=== PATIENT | female | born 1985 | race Caucasian/White ===

== ENCOUNTER 2019-12-29 16:01 | Observation (INO) ==
[2019-12-29] MEDS ORDERED: Naloxone 0.4 MG/ML INJ IVP PRN (16:58)
[2019-12-29] MEDS ORDERED: Ringers Solution, Lactated 1,000 ML IVC SCH (17:00)
[2019-12-29] MEDS ORDERED: *HR* HYDROcodone/Acet 5/325 mg TABLET PO PRN (17:48)
[2019-12-29] MEDS ORDERED: SUMAtriptan succinate 50 MG TABLET PO PRN (17:48)
[2019-12-29 17:54] LABS: Basophils % 0.4 %; Eosinophils # 0.1 K/mcL (0.0-0.6); Eosinophils % 1.5 %; Hemoglobin 10.9 g/dL (11.5-15.4); Immature Granulocytes % 0.2 % (0-4); Lymphocytes # 1.1 K/mcL (0.6-4.6); Lymphocytes % 20.5 %; Mean Corpuscular HGB Conc 31.1 g/dL (31.6-35.5); Mean Corpuscular Hemoglobin 27.2 pg (28.0-33.3); Mean Corpuscular Volume 87.3 fL (83.0-100.0); Mean Platelet Volume 9.8 fL (9.4-12.4); Monocytes # 0.4 K/mcL (0.0-1.3); Monocytes % 6.5 %; Neutrophils # 3.8 K/mcL (1.6-8.9); Platelet Count 257 K/mcL (140-400); Red Blood Count 4.01 M/mcL (3.82-4.97); Red Cell Distribution Width 13.1 % (11.5-14.5); Segmented Neutrophils % 70.9 %; White Blood Count 5.4 K/mcL (4.3-11.1)
[2019-12-29] MEDS: Pantoprazole 40 MG VIAL IVP SCH (17:56)
[2019-12-29] MEDS: Ondansetron 4 MG/2 ML VIAL IVP PRN (17:56)
[2019-12-29] MEDS: MetroNIDAZOLE 500 MG/100 ML 500 MG/100 ML BAG IVPB SCH ×2 (17:57→22:53)
[2019-12-29 18:09] LABS: Alanine Aminotransferase 12 Units/L (7-52); Albumin 3.9 g/dL (3.5-5.7); Albumin/Globulin Ratio 1.5 (1.1-2.2); Alkaline Phosphatase 40 Units/L (34-104); Aspartate Amino Transferase 17 Units/L (13-39); BUN/Creatinine Ratio 16 (6-26); Bilirubin,Total 0.3 mg/dL (0.3-1.0); Blood Urea Nitrogen 12 mg/dL (6-20); Carbon Dioxide 25 mEq/L (23-29); Chloride 108 mEq/L (98-107); Globulin 2.6 g/dL (2.4-3.5); Glucose 91 mg/dL (70-105); Lipase 47 Units/L (11-82); Magnesium 1.8 mg/dL (1.6-2.6); Osmolality,Calculated 289 (280-300); Potassium 3.4 mEq/L (3.5-5.1); Sodium 140 mEq/L (136-145); Total Protein 6.5 g/dL (6.4-8.9); eGFR For African Americans > 60 (> 60); eGFR For Non-African Americans > 60 (> 60)
[2019-12-29] MEDS: 0.9 % Sodium Chloride w KCl 20 MEQ/1,000 ML MLS IVC SCH (18:34)
[2019-12-29] MEDS ORDERED: Melatonin 3 MG TABLET PO ONE (22:34)
[2019-12-30] MEDS: Pantoprazole 40 MG VIAL IVP SCH (07:16)
[2019-12-30] MEDS: MetroNIDAZOLE 500 MG/100 ML 500 MG/100 ML BAG IVPB SCH ×3 (07:16→23:14)
[2019-12-30] MEDS: 0.9 % Sodium Chloride w KCl 20 MEQ/1,000 ML MLS IVC SCH ×2 (07:16→23:13)
[2019-12-30] MEDS: Acetaminophen 325 MG TABLET PO PRN ×2 (07:22→13:52)
[2019-12-30 10:32] LABS: Hematocrit 33.1 % (35.3-44.9); Hemoglobin 10.6 g/dL (11.5-15.4); Mean Corpuscular Hemoglobin 28.1 pg (28.0-33.3); Mean Corpuscular Volume 87.8 fL (83.0-100.0); Mean Platelet Volume 10.1 fL (9.4-12.4); Platelet Count 215 K/mcL (140-400); Red Blood Count 3.77 M/mcL (3.82-4.97); Red Cell Distribution Width 13.1 % (11.5-14.5); White Blood Count 3.9 K/mcL (4.3-11.1)
[2019-12-30 10:52] LABS: BUN/Creatinine Ratio 10 (6-26); Blood Urea Nitrogen 8 mg/dL (6-20); Calcium 8.6 mg/dL (8.6-10.3); Carbon Dioxide 24 mEq/L (23-29); Chloride 106 mEq/L (98-107); Glucose 87 mg/dL (70-105); Osmolality,Calculated 280 (280-300); Potassium 3.8 mEq/L (3.5-5.1); Sodium 136 mEq/L (136-145); eGFR For African Americans > 60 (> 60); eGFR For Non-African Americans > 60 (> 60)
[2019-12-30 14:59] LABS: Bacteria,Urine Few per hpf (None-Few); Bilirubin,Urine Negative (Negative); Blood,Urine Moderate (Negative); Clarity,Urine Clear (Clear); Color,Urine Colorless (Yellow); Glucose,Urine (UA) Normal (Normal); Ketones,Urine Negative (Negative); Leukocyte Esterase,Urine Moderate (Negative); Mucus,Urine Few per lpf (None-Few); Nitrite,Urine Negative (Negative); Protein,Urine Negative (Neg-Trace); Specific Gravity,Urine 1.005 (1.010-1.025); Squamous Epithelial Cell,Urine Few per hpf (None-Few); Urobilinogen,Urine Normal (Normal)
[2019-12-31 04:55] LABS: Basophils % 0.6 %; Eosinophils # 0.1 K/mcL (0.0-0.6); Hematocrit 33.8 % (35.3-44.9); Hemoglobin 10.3 g/dL (11.5-15.4); Immature Granulocytes % 0.3 % (0-4); Lymphocytes # 1.2 K/mcL (0.6-4.6); Lymphocytes % 36.4 %; Mean Corpuscular HGB Conc 30.5 g/dL (31.6-35.5); Mean Corpuscular Volume 88.7 fL (83.0-100.0); Mean Platelet Volume 10.1 fL (9.4-12.4); Monocytes # 0.2 K/mcL (0.0-1.3); Monocytes % 6.8 %; Neutrophils # 1.7 K/mcL (1.6-8.9); Platelet Count 231 K/mcL (140-400); Red Blood Count 3.81 M/mcL (3.82-4.97); Red Cell Distribution Width 13.2 % (11.5-14.5); Segmented Neutrophils % 51.9 %; White Blood Count 3.2 K/mcL (4.3-11.1)
[2019-12-31 05:05] LABS: BUN/Creatinine Ratio 10 (6-26); Blood Urea Nitrogen 8 mg/dL (6-20); Calcium 8.3 mg/dL (8.6-10.3); Carbon Dioxide 27 mEq/L (23-29); Chloride 110 mEq/L (98-107); Glucose 100 mg/dL (70-105); Osmolality,Calculated 288 (280-300); Potassium 3.9 mEq/L (3.5-5.1); Sodium 140 mEq/L (136-145); eGFR For African Americans > 60 (> 60); eGFR For Non-African Americans > 60 (> 60)
[2019-12-31] MEDS: MetroNIDAZOLE 500 MG/100 ML 500 MG/100 ML BAG IVPB SCH ×2 (09:22→16:00)
[2019-12-31] MEDS: Pantoprazole 40 MG VIAL IVP SCH (09:23)
[2019-12-31] MEDS: Ondansetron 4 MG/2 ML VIAL IVP PRN (09:23)
[2019-12-31] MEDS ORDERED: *HR* Promethazine 25 MG/ML VIAL IVP PRN (11:11)
[2019-12-31] MEDS ORDERED: Sennosides/Docusate Sodium TABLET PO SCH (11:45)
[2019-12-31 12:06] VITALS: BP 143/91
[2019-12-31] MEDS ORDERED: MethylPREDNISolone 40 MG/ML VIAL IVP ONE (13:26)
[2019-12-31 14:31] LABS: Albumin 4.1 g/dL (3.5-5.7); Albumin/Globulin Ratio 1.5 (1.1-2.2); Bilirubin,Direct 0.1 mg/dL (0.0-0.2); Bilirubin,Indirect 0.1 mg/dL (0.0-1.0); Bilirubin,Total 0.2 mg/dL (0.3-1.0); Globulin 2.8 g/dL (2.4-3.5); Total Protein 6.9 g/dL (6.4-8.9)
[2019-12-31 15:11] LABS: Hepatitis B Surface Antigen Nonreactive (Nonreactive)
[2019-12-31 15:40] LABS: Hepatitis B Core IgM Nonreactive (Nonreactive)
[2019-12-31 15:41] LABS: Hepatitis A Antibody IgM Nonreactive (Nonreactive); Hepatitis C Virus Antibody Nonreactive (Nonreactive)
== END 2019-12-31 18:28 | disposition home or self-care (01) ==
LOC: 3ANU → SUATTDRO 16:38
PROVIDERS: ADMIT Internal Medicine; ATTEND Student in an Organized Health Care Education/Training Program